=== PATIENT | female | born 1985 | race Caucasian/White ===

== ENCOUNTER 2018-09-02 16:11 | Emergency (ER) | payer OTHER ==
[~2018-09-02] VITALS: Ht 172.7 cm; Wt 140.0 kg
--- NOTE | 2018-09-02 17:00 | PHYS DOC ---
Adult General Chief Complaint Chief Complaint: CHEST PAIN HPI HPI Patient is a 32 year old female who presents with 15 weeks and states today she was at work and she began having chest tightness and mid chest. She states that she was walking to the car she noticed that she will shortness of air with exertion. Patient states she currently feels fine and is feeling better than she did her way to the hospital. 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 Patient states she's had a chronic cough the last 2 and a fleets she is coughing up green mucus. She denies fever or body aches or nausea or vomiting. Patient states she also smokes half a pack a day. Patient also has asthma. Review of Systems Review of Systems Constitutional: Denies fever or chills [] Eyes: Denies change in visual acuity, redness, or eye pain [] HENT: Denies nasal congestion or sore throat [] Respiratory: Denies cough or shortness of breath [] Cardiovascular: No additional information not addressed in HPI [] GI: Denies abdominal pain, nausea, vomiting, bloody stools or diarrhea [] : Denies dysuria or hematuria [] Musculoskeletal: Denies back pain or joint pain [] Integument: Denies rash or skin lesions [] Neurologic: Denies headache, focal weakness or sensory changes [] Endocrine: Denies polyuria or polydipsia [] All other systems were reviewed and found to be within normal limits, except as documented in this note. Allergies Allergies Allergies Coded Allergies Type Severity Reaction Last Updated Verified Penicillins Allergy Severe anaphalaxis 09/02/18 Yes paroxetine Allergy Unknown tremors 09/02/18 Yes Physical Exam Physical Exam Constitutional: Well developed, well nourished, no acute distress, non-toxic appearance. [] HENT: Normocephalic, atraumatic, bilateral external ears normal, oropharynx moist, no oral exudates, nose normal. [] Eyes: PERRLA, EOMI, conjunctiva normal, no discharge. [] Neck: Normal range of motion, no tenderness, supple, no stridor. [] Cardiovascular:Heart rate regular rhythm, no murmur [] Lungs & Thorax: Bilateral breath sounds clear to auscultation [] Abdomen: Bowel sounds normal, soft, no tenderness, no masses, no pulsatile masses. [] Skin: Warm, dry, no erythema, no rash. [] Back: No tenderness, no CVA tenderness. [] Extremities: No tenderness, no cyanosis, no clubbing, ROM intact, no edema. [] Neurologic: Alert and oriented X 3, normal motor function, normal sensory function, no focal deficits noted. [] Psychologic: Affect normal, judgement normal, mood normal. [] Current Patient Data Vital Signs Vital Signs Date Time Temp Pulse Resp B/P (MAP) Pulse Ox O2 Delivery O2 Flow Rate FiO2 09/02/18 18:15 84 16 116/70 (85) 97 Room Air 09/02/18 16:18 98.2 98.2 Lab Values Laboratory Tests Test 09/02/18 16:30 09/02/18 17:08 White Blood Count 11.0 x10^3/uL (4.0-11.0) Red Blood Count 4.57 x10^6/uL (3.50-5.40) Hemoglobin 14.1 g/dL (12.0-15.5) Hematocrit 40.4 % (36.0-47.0) Mean Corpuscular Volume 89 fL (79-100) Mean Corpuscular Hemoglobin 31 pg (25-35) Mean Corpuscular Hemoglobin Concent 35 g/dL (31-37) Red Cell Distribution Width 14.1 % (11.5-14.5) Platelet Count 255 x10^3/uL (140-400) Neutrophils (%) (Auto) 71 % (31-73) Lymphocytes (%) (Auto) 23 % (24-48) L Monocytes (%) (Auto) 4 % (0-9) Eosinophils (%) (Auto) 1 % (0-3) Basophils (%) (Auto) 1 % (0-3) Neutrophils # (Auto) 7.8 x10^3uL (1.8-7.7) H Lymphocytes # (Auto) 2.5 x10^3/uL (1.0-4.8) Monocytes # (Auto) 0.5 x10^3/uL (0.0-1.1) Eosinophils # (Auto) 0.1 x10^3/uL (0.0-0.7) Basophils # (Auto) 0.1 x10^3/uL (0.0-0.2) Sodium Level 140 mmol/L (136-145) Potassium Level 4.1 mmol/L (3.5-5.1) Chloride Level 106 mmol/L (98-107) Carbon Dioxide Level 20 mmol/L (21-32) L Anion Gap 14 (6-14) Blood Urea Nitrogen 7 mg/dL (7-20) Creatinine 0.6 mg/dL (0.6-1.0) Estimated GFR (Cockcroft-Gault) 115.9 BUN/Creatinine Ratio 12 (6-20) Glucose Level 87 mg/dL (70-99) Calcium Level 9.0 mg/dL (8.5-10.1) Total Bilirubin 0.3 mg/dL (0.2-1.0) Aspartate Amino Transferase (AST) 15 U/L (15-37) Alanine Aminotransferase (ALT) 17 U/L (14-59) Alkaline Phosphatase 99 U/L (46-116) Total Protein 6.7 g/dL (6.4-8.2) Albumin 2.9 g/dL (3.4-5.0) L Albumin/Globulin Ratio 0.8 (1.0-1.7) L Lipase 63 U/L (73-393) L Influenza Type A Antigen Negative (NEGATIVE) Influenza Type B Antigen Negative (NEGATIVE) Laboratory Tests 09/02/18 16:30 Laboratory Tests 09/02/18 16:30 EKG EKG Sinus rhythm and no STEMI[] Interpretation Time: [address] Lai. Radiology/Procedures Radiology/Procedures [] Course & Med Decision Making Course & Med Decision Making Patient is a 32 year old female who presents with 15 weeks and states today she was at work and she began having chest tightness and mid chest. She states that she was walking to the car she noticed that she will shortness of air with exertion. Patient states she currently feels fine and is feeling better than she did her way to the hospital. 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 Patient states she's had a chronic cough the last 2 and a fleets she is coughing up green mucus. She denies fever or body aches or nausea or vomiting. Patient states she also smokes half a pack a day. Patient also has asthma. Patient states she has not been been having to use her rescue inhaler. Abdomen is soft and nontender. Patient denies vaginal bleeding or vaginal discharge. Urine shows no infection. Patient has no extremity edema. Patient has no unilateral leg swelling, tenderness in her calf with palpation or with walking. Lungs are clear in all lobe ludwig. She is ambulatory with a steady gait. Skin is pink warm and dry. Speaks in full clear sentences. Denies any numbness or tingling or focal weakness. Patient is afebrile, 84 heart rate, 16 respirations, 116/70, 97% on room air. Blood work is unremarkable. Patient was told she has probable bronchitis and will need to follow up with her OB tomorrow as scheduled. I did write her a prescription for Azithromycin and told her to hold onto it and to be reevaluated by her OB tomorrow. I also offered the patient a Breasthing treatment but she refused and states she no longer feels soa or has chest tightness. Patient is discharged home in stable condition. Dragon Disclaimer Dragon Disclaimer This electronic medical record was generated, in whole or in part, using a voice recognition dictation system. Departure Departure Impression: Primary Impression: Bronchitis Disposition: 01 HOME, SELF-CARE Condition: STABLE Patient Instructions: Acute Bronchitis Additional Instructions: FOLLOW UP WITH OB SCHEDULED TOMORROW. TAKE ANTIBIOTIC IF NEEDED. Scripts Azithromycin (AZITHROMYCIN TABLET) 250 Mg Tablet 1 PKG PO UD, #6 TAB Prov: KENIA GIBSON APRN 09/02/18 KENIA GIBSON APRN Sep 02, 2018 17:00
[2018-09-02 17:12] LABS: BASO # 0.1 x10^3/uL (0.0-0.2); BASO % 1 % (0-3); EOS # 0.1 x10^3/uL (0.0-0.7); EOS % 1 % (0-3); HEMATOCRIT 40.4 % (36.0-47.0); HEMOGLOBIN 14.1 g/dL (12.0-15.5); LYMPH # 2.5 x10^3/uL (1.0-4.8); LYMPH % 23 % (24-48); MEAN CORPUSCULAR HEMOGLOBIN 31 pg (25-35); MEAN CORPUSCULAR HGB CONC 35 g/dL (31-37); MEAN CORPUSCULAR VOLUME 89 fL (79-100); MONO # 0.5 x10^3/uL (0.0-1.1); MONO % 4 % (0-9); NEUT # 7.8 x10^3uL (1.8-7.7); NEUT % 71 % (31-73); PLATELET COUNT 255 x10^3/uL (140-400); RED BLOOD COUNT 4.57 x10^6/uL (3.50-5.40); RED CELL DISTRIBUTION WIDTH 14.1 % (11.5-14.5)
[2018-09-02 17:24] LABS: CREATININE 0.6 mg/dL (0.6-1.0); GFR 115.9; POTASSIUM 4.1 mmol/L (3.5-5.1)
[2018-09-02 17:30] LABS: ALBUMIN 2.9 g/dL (3.4-5.0); ALBUMIN/GLOBULIN RATIO 0.8 (1.0-1.7); TOTAL BILIRUBIN 0.3 mg/dL (0.2-1.0); TOTAL PROTEIN 6.7 g/dL (6.4-8.2)
[2018-09-02 17:40] LABS: INFLUENZA A PATIENT NEGATIVE (NEGATIVE); INFLUENZA B PATIENT NEGATIVE (NEGATIVE)
[2018-09-02] MEDS ORDERED: AZIT250T6 PO (18:06)
[2018-09-02 18:15] VITALS: BP 116/70
--- NOTE | 2018-09-03 05:07 | EKG ---
[facility] [address] [place] [address] Test Date: 2018-09-02 Test Time: 16:23:05 Pat Name: GEORGE BOLAND Department: Room: Gender: F [employer] T[employer]: : 1985 Requested By: KENIA GIBSON Order Number: [id number] Reading MD: Measurements Intervals [place] Rate: 87 P: 52 MD: 136 QRS: 26 QRSD: 84 T: 41 QT: 358 QTc: 436 Interpretive Statements SINUS RHYTHM INCOMPLETE RIGHT BUNDLE BRANCH BLOCK NON SPECIFIC T ABNORMALITY BORDERLINE ECG No previous ECG available for comparison
== END 2018-09-02 18:40 | disposition home or self-care (01) ==
LOC: ER 16:11
DX: O99.512 Diseases of the respiratory system complicating pregnancy, second trimester (principal); J40 Bronchitis, not specified as acute or chronic; R07.89 Other chest pain; O99.332 Smoking (tobacco) complicating pregnancy, second trimester; Z3A.15 15 weeks gestation of pregnancy; Z88.0 Allergy status to penicillin; Z88.8 Allergy status to other drugs, medicaments and biological substances
CPT/HCPCS: 36415; 80053; 83690; 85025; 87804; 93005; 99284-25